=== PATIENT | male | born 1950 | race Caucasian/White ===

== ENCOUNTER 2022-06-08 16:43 | Emergency (ER) | payer MEDICARE, OTHER ==
[2022-06-08] MEDS ORDERED: Sodium Chloride 0.9% 10 ML Syringe FLUSH PRN (17:07)
[2022-06-08] MEDS ORDERED: Lactated Ringers 1,000 ML IV ONE (17:14)
[2022-06-08 17:50] LABS: PTT,PARTIAL THROMBOPLSTIN TIME 23.7 SEC (20.5-30.9)
[2022-06-08 17:52] LABS: CHLORIDE,CL 93 mmol/L (98-107)
[2022-06-08 17:53] LABS: ANION GAP 15.5 mmol/L (5-15); ESTIMATED GFR 14 mL/min (>=60)
[2022-06-08 17:56] LABS: SODIUM,NA 128 mmol/L (136-145)
[2022-06-08] MEDS ORDERED: Ondansetron 4 MG/2 ML SDV IVPUSH ONE (18:16)
[2022-06-08] MEDS ORDERED: Sodium Chloride 0.9% 1,000 ML IV SCH ×2 (18:30→19:30)
[2022-06-08] MEDS ORDERED: fentaNYL 50 MCG/ML SDV IVPUSH ONE (19:08)
== END 2022-06-08 21:15 | disposition short-term general hospital (02) ==
LOC: VM.ED 16:43
DX: C25.9 Malignant neoplasm of pancreas, unspecified (principal); N17.9 Acute kidney failure, unspecified; R11.2 Nausea with vomiting, unspecified; R18.8 Other ascites; Z79.82 Long term (current) use of aspirin; Z79.899 Other long term (current) drug therapy
CPT/HCPCS: 36415; 80053; 83605; 83735; 84100; 85610; 85730; 96361; 96374; 96375; 99284; 99285-25; J2405; J3010; J7030; J7120

== ENCOUNTER 2022-06-28 10:57 | Emergency (ER) | payer MEDICARE, OTHER ==
[2022-06-28] MEDS: Ondansetron 4 MG/2 ML SDV IVPUSH ONE (11:34)
[2022-06-28] MEDS: Sodium Chloride 0.9% 1,000 ML IV SCH (11:34)
[2022-06-28] MEDS: Sodium Chloride 0.9% 10 ML Syringe FLUSH PRN (11:35)
[2022-06-28 12:17] LABS: PTT,PARTIAL THROMBOPLSTIN TIME 26.2 SEC (20.5-30.9)
[2022-06-28 12:30] LABS: SODIUM,NA 135 mmol/L (136-145)
[2022-06-28 12:33] LABS: ESTIMATED GFR 43 mL/min (>=60)
[2022-06-28 12:34] LABS: ANION GAP 12.8 mmol/L (5-15); CHLORIDE,CL 96 mmol/L (98-107)
[2022-06-28] MEDS: NS + KCl 20mEq/L 1,000 ML IV SCH (13:10)
== END 2022-06-28 14:20 | disposition home or self-care (01) ==
LOC: VM.ED 10:57
DX: E86.0 Dehydration (principal); E87.6 Hypokalemia; Z79.82 Long term (current) use of aspirin; Z79.899 Other long term (current) drug therapy
CPT/HCPCS: 36415; 80053; 82140; 82150; 83605; 83690; 83735; 84100; 85025; 85610; 85730; 96361; 96365; 96375; 99283; 99284; J2405; J3480; J3490; J7030